=== PATIENT | female | born 1990 | race Caucasian/White ===

== ENCOUNTER 2020-10-19 20:25 | Emergency (ER) | payer OTHER ==
[2020-10-19 21:14] LABS: BASOPHIL 0.3 % (0-2); EOSINOPHIL 1.1 % (0-5); HCT 36.5 % (37.0-47.0); MCH 26.9 pg (25.0-31.0); MCHC 32.9 g/dL (32.0-36.0); MCV 81.8 fL (78.0-100.0); MONOCYTE 5.3 % (0-12); MPV 11.1 fL (6.0-9.5); NEUTROPHIL 82.9 % (41-80); NRBC 0; PLT 269 K/uL (150-400); RBC 4.46 M/uL (4.20-5.40); WBC 11.2 K/uL (4.0-10.5)
[2020-10-19 21:16] LABS: BILIRUBIN NEGATIVE (NEGATIVE); BLOOD NEGATIVE Ery/uL (NEGATIVE); CLARITY CLEAR (CLEAR); COLOR YELLOW (YELLOW); GLUCOSE (U) NORMAL (NORMAL); LEUKOCYTES NEGATIVE Leu/uL (NEGATIVE); NITRITE NEGATIVE (NEGATIVE); PROTEIN NEGATIVE (NEGATIVE); SPECIFIC GRAVITY 1.015 (1.001-1.030); UROBILINOGEN 0.2 mg/dL (0.2-1.0)
[2020-10-19 21:30] LABS: ALBUMIN 3.8 g/dL (3.4-5.0); BILIRUBIN - TOTAL 0.3 mg/dL (0.2-1.0); BUN/CREAT RATIO (CALC) 10.5 RATIO; CREATININE 0.76 mg/dL (0.51-0.95); GLOBULIN (CALCULATION) 3.9 g/dL; TOTAL PROTEIN 7.7 g/dL (6.4-8.2)
[2020-10-19] MEDS ORDERED: ONDANSETRON ODT4 MG PO (23:07)
[2020-10-19] MEDS ORDERED: DOXYCYCLINE MO100 MG PO (23:07)
[2020-10-23 00:10] LABS: CHLAMYDIA TRACHOMATIS, NAA Negative (Negative); NEISSERIA GONORRHOEAE, NAA Negative (Negative)
== END 2020-10-19 23:36 | disposition home or self-care (01) ==
LOC: FER 20:25
PROVIDERS: Emergency Medicine
DX: R10.2 Pelvic and perineal pain (principal); J45.909 Unspecified asthma, uncomplicated; Z88.1 Allergy status to other antibiotic agents
CPT/HCPCS: 36415; 80053; 81003; 85025; 87210; 87491; 87591; J0696